=== PATIENT | male | born 1970 | race Caucasian/White ===

== ENCOUNTER 2018-02-28 09:11 | Outpatient (CLI) | payer MEDICAID | END 2018-02-28 23:59 | disposition home or self-care (01) | LOC: 64 CT 09:11 | PROVIDERS: ATTEND Surgery | DX: K86.89 Other specified diseases of pancreas (principal); N28.1 Cyst of kidney, acquired; N20.0 Calculus of kidney; R19.00 Intra-abdominal and pelvic swelling, mass and lump, unspecified site | CPT/HCPCS: 74150 ==

== ENCOUNTER 2018-03-14 09:21 | Outpatient (CLI) | payer MEDICAID ==
[2018-03-14] MEDS ORDERED: iohexol 300mg/ml 100ml inj. ONE (09:31)
== END 2018-03-14 23:59 | disposition home or self-care (01) ==
LOC: 64 CT 09:21
PROVIDERS: ATTEND Surgery
DX: N28.1 Cyst of kidney, acquired (principal); K31.89 Other diseases of stomach and duodenum; Z87.891 Personal history of nicotine dependence
CPT/HCPCS: 74160; J7030; Q9967

== ENCOUNTER 2018-03-18 05:23 | Day surgery (SDC) | payer MEDICAID ==
[~2018-03-18] VITALS: Ht 185.4 cm; Wt 76.5 kg
[2018-03-18] VITALS (14 sets, daily range): BP systolic 110–160; BP diastolic 46–106
[2018-03-18] MEDS ORDERED: normal saline 1000ml 1,000 ML IV PRN (06:15)
[2018-03-18 06:56] LABS: BASOPHILS # (AUTO) 0.1 X10'3 (0-0.2); BASOPHILS % (AUTO) 1.3 % (0-1); EOSINOPHILS # (AUTO) 0.2 X10'3 (0-0.9); EOSINOPHILS % (AUTO) 3.4 % (0-6); HEMATOCRIT 42.2 % (42.0-52.0); HEMOGLOBIN 14.3 g/dl (14.0-17.9); LYMPHOCYTES # (AUTO) 1.9 X10'3 (1.1-4.8); MEAN CORPUSCULAR HEMOGLOBIN 30.3 PG (27.0-31.0); MEAN CORPUSCULAR HGB CONC 33.9 % (33.0-36.5); MEAN CORPUSCULAR VOLUME 89.5 FL (78-98); MEAN PLATELET VOLUME 11.2 FL (7.4-10.4); MONOCYTES # (AUTO) 0.6 X10'3 (0-0.9); MONOCYTES % (AUTO) 8.9 % (2-12); NEUTROPHILS % (AUTO) 58.4 % (42-75); PLATELET COUNT 207 X10'3 (140-440); RED BLOOD COUNT 4.71 X10'6 (4.70-6.10); RED CELL DISTRIBUTION WIDTH 13.2 % (11.5-14.5); WHITE BLOOD COUNT 6.9 X10'3 (4.5-11.0)
[2018-03-18 07:09] LABS: LARGE PLATELETS FEW; PLATELET ESTIMATE NORMAL
[2018-03-18] MEDS ORDERED: fentaNYL/PF 50MCG/1 ML 2ML syringe IV ONE (08:00)
[2018-03-18] MEDS ORDERED: MIDAZolam 5mg/ml 2ml vial IV ONE (08:00)
[2018-03-18] MEDS ORDERED: LIDOcaine 1%/PF 5ML 10 MG/ML VIAL SQ ONE (08:00)
[2018-03-18] MEDS ORDERED: blood pressure med (08:05)
[2018-03-18] MEDS ORDERED: midazolam 2 mg/2 ml injection IV PRN (08:40)
[2018-03-18] MEDS ORDERED: fentaNYL/PF 50MCG/1 ML 2ML syringe IV PRN (08:40)
[2018-03-18] MEDS ORDERED: LIDOcaine 1%/PF 5ML 10 MG/ML VIAL ONE (08:56)
== END 2018-03-18 11:35 | disposition home or self-care (01) ==
LOC: SSTAY O 05:23
PROVIDERS: ATTEND Radiology Diagnostic Radiology
DX: N28.1 Cyst of kidney, acquired (principal); I10 Essential (primary) hypertension; F41.8 Other specified anxiety disorders; Z88.0 Allergy status to penicillin; Z79.891 Long term (current) use of opiate analgesic; Z87.891 Personal history of nicotine dependence; Z98.890 Other specified postprocedural states; Z79.899 Other long term (current) drug therapy
CPT/HCPCS: 36415; 49405; 85025; 87070; 99152; 99153; J2001; J2250; J3010; J7030

== ENCOUNTER 2018-08-13 12:58 | Emergency (ER) | payer MEDICAID ==
[~2018-08-13] VITALS: Ht 185.4 cm; Wt 79.0 kg
[~2018-08-13 12:58] MED LIST: blood pressure med
[2018-08-13 13:51] LABS: BASOPHILS # (AUTO) 0.1 X10'3 (0-0.2); BASOPHILS % (AUTO) 0.8 % (0-1); EOSINOPHILS # (AUTO) 0.3 X10'3 (0-0.9); LYMPHOCYTES # (AUTO) 2.1 X10'3 (1.1-4.8); LYMPHOCYTES % (AUTO) 29.7 % (21-51); MEAN CORPUSCULAR HEMOGLOBIN 30.5 PG (27.0-31.0); MEAN CORPUSCULAR HGB CONC 33.4 % (33.0-36.5); MEAN CORPUSCULAR VOLUME 91.2 FL (78-98); MEAN PLATELET VOLUME 9.1 FL (7.4-10.4); MONOCYTES # (AUTO) 0.6 X10'3 (0-0.9); MONOCYTES % (AUTO) 8.1 % (2-12); NEUTROPHILS # (AUTO) 4.1 X10'3 (1.8-7.7); NEUTROPHILS % (AUTO) 57.4 % (42-75); PLATELET COUNT 244 X10'3 (140-440); RED BLOOD COUNT 4.93 X10'6 (4.70-6.10); RED CELL DISTRIBUTION WIDTH 13.8 % (11.5-14.5); WHITE BLOOD COUNT 7.1 X10'3 (4.5-11.0)
[2018-08-13 13:54] LABS: CLARITY,URINE CLEAR (Clear); COLOR,URINE YELLOW (Yellow); GLUCOSE, URINE NEGATIVE (Neg); KETONES,URINE NEGATIVE (Neg); LEUKOCYTE ESTERASE ,URINE NEGATIVE (Neg); NITRITES, URINE NEGATIVE (Neg); OCCULT BLOOD,URINE NEGATIVE (Neg); PROTEIN,URINE NEGATIVE (Neg); UROBILINOGEN,URINE 0.2 E.U/dL (0.2-1.0)
[2018-08-13 14:03] LABS: PROTHROMBIN TIME 9.9 SECONDS (9.0-12.0)
[2018-08-13 14:04] LABS: ALANINE AMINOTRANSFERASE 20 U/L (12-78); ALBUMIN 3.8 G/DL (3.4-5.0); ALBUMIN/GLOBULIN RATIO 1.2 (1.1-1.5); ALKALINE PHOSPHATASE 89 IU/L (46-116); AMYLASE 43 U/L (25-115); ANION GAP 4 (8-16); ASPARTATE AMINO TRANSFERASE 16 U/L (10-37); BILIRUBIN,TOTAL 0.5 MG/DL (0.1-1.0); BLOOD UREA NITROGEN 15 MG/DL (7-18); BUN/CREATININE RATIO 11.9 (5.4-32.0); CALCIUM 8.9 MG/DL (8.5-10.1); CHLORIDE 104 MMOL/L (99-107); CREATININE 1.26 MG/DL (0.60-1.10); GLUCOSE 89 MG/DL (70-104); LIPASE 97 U/L (73-393); SODIUM 140 MMOL/L (135-145); eGFR 62 ML/MIN
[2018-08-13 14:17] LABS: UA COLLECTION TYPE CLN CATCH MIDSTREAM
[2018-08-13] MEDS ORDERED: acetaminophen 325mg tablet PO ONE (16:00)
[2018-08-13] MEDS ORDERED: LIDOcaine 1%/PF 5ML 10 MG/ML VIAL ONE (16:09)
[2018-08-13 16:11] VITALS: BP 121/51
[2018-08-13] MEDS ORDERED: LIDOcaine 1%/PF 5ML 10 MG/ML VIAL SQ ONE (16:30)
== END 2018-08-13 17:19 | disposition home or self-care (01) ==
LOC: ER 12:59
DX: N28.1 Cyst of kidney, acquired (principal); Z88.0 Allergy status to penicillin
CPT/HCPCS: 36415; 49405; 76775; 76942; 80053; 81003; 82150; 83690; 85025; 85610; 87070; 99284; J2001

== ENCOUNTER 2022-06-14 13:58 | Emergency (ER) | payer MEDICAID ==
[~2022-06-14] VITALS: Ht 185.4 cm; Wt 81.8 kg
[2022-06-14] MEDS ORDERED: HYDR-3965 PO (15:43)
[2022-06-14] MEDS ORDERED: ONDA4TAB12 PO (15:43)
[2022-06-14] MEDS ORDERED: ondansetron/PF 4mg/2ml inj IV ONE (15:50)
[2022-06-14] MEDS ORDERED: normal saline 1000ML IV soln IVB ONE (15:50)
[2022-06-14 16:52] LABS: BASOPHILS % (AUTO) 0.5 % (0-1); EOSINOPHILS # (AUTO) 0.2 X10'3 (0-0.9); EOSINOPHILS % (AUTO) 1.7 % (0-6); HEMATOCRIT 39.5 % (42.0-52.0); HEMOGLOBIN 13.5 g/dl (14.0-17.9); LYMPHOCYTES # (AUTO) 1.2 X10'3 (1.1-4.8); LYMPHOCYTES % (AUTO) 12.6 % (21-51); MEAN CORPUSCULAR HEMOGLOBIN 32.1 PG (27.0-31.0); MEAN CORPUSCULAR HGB CONC 34.1 g/dL (33.0-36.5); MEAN CORPUSCULAR VOLUME 94.2 FL (78-98); MEAN PLATELET VOLUME 10.3 FL (7.4-10.4); MONOCYTES % (AUTO) 10.9 % (2-12); NEUTROPHILS % (AUTO) 74.3 % (42-75); PLATELET COUNT 268 X10'3 (140-440); RED CELL DISTRIBUTION WIDTH 13.5 % (11.5-14.5); WHITE BLOOD COUNT 9.5 X10'3 (4.5-11.0)
[2022-06-14 16:59] LABS: ALANINE AMINOTRANSFERASE 29 U/L (12-78); ALBUMIN 3.4 G/DL (3.4-5.0); ALBUMIN/GLOBULIN RATIO 0.9 (1.1-1.5); ALKALINE PHOSPHATASE 71 IU/L (46-116); ANION GAP 6 (8-16); ASPARTATE AMINO TRANSFERASE 22 U/L (10-37); BILIRUBIN,TOTAL 0.9 MG/DL (0.1-1.0); BLOOD UREA NITROGEN 15 MG/DL (7-18); BUN/CREATININE RATIO 13.3 (5.4-32.0); CALCIUM 9.1 MG/DL (8.5-10.1); CHLORIDE 100 MMOL/L (99-107); CREATININE 1.13 MG/DL (0.60-1.10); GLUCOSE 88 MG/DL (70-104); POTASSIUM 3.8 MMOL/L (3.5-5.1); SODIUM 138 MMOL/L (135-145); TOTAL CARBON DIOXIDE 32.4 MMOL/L (24-32); eGFR 69 ML/MIN
[2022-06-14] MEDS ORDERED: ketorolac trometh. 30mg/ml inj. IV ONE (17:05)
[2022-06-14] MEDS ORDERED: HYDROcodone/acetaminophen 5mg/325mg tablet PO ONE (17:05)
[2022-06-14 17:34] VITALS: BP 124/81
== END 2022-06-14 18:13 | disposition home or self-care (01) ==
LOC: ER 14:00
DX: S82.142A Displaced bicondylar fracture of left tibia, initial encounter for closed fracture (principal); S06.0X0A Concussion without loss of consciousness, initial encounter; H53.2 Diplopia; R42 Dizziness and giddiness; I10 Essential (primary) hypertension; Z88.0 Allergy status to penicillin; V28.4XXA Motorcycle driver injured in noncollision transport accident in traffic accident, initial encounter; Y93.89 Activity, other specified; Y92.89 Other specified places as the place of occurrence of the external cause; Y99.9 Unspecified external cause status
CPT/HCPCS: 36415; 70450; 73564; 73700; 80053; 85025; 86885; 86900; 86901; 96361; 96374; 96375; 99285; J1885; J2405; J7030